=== PATIENT | male | born 2005 | race Caucasian/White ===

== ENCOUNTER 2024-01-05 17:22 | Emergency (ER) | payer OTHER ==
[~2024-01-05] VITALS: Ht 175.3 cm; Wt 61.2 kg
[2024-01-05 18:40] VITALS: BP 120/82; TEMP 98.6; O2SAT 100
[2024-01-05] MEDS ORDERED: KETOROLAC TROMETHAMINE INJ 30 MG/ML VIAL ONE (19:15)
[2024-01-05] MEDS: KETOROLAC TROMETHAMINE INJ 30 MG/ML VIAL IM ONE (19:23)
[2024-01-05] MEDS ORDERED: IBUP-1957 PO (21:53)
[2024-01-05] MEDS ORDERED: ACET-2605 PO (21:53)
[2024-01-05] MEDS ORDERED: CYCL5TAB PO (21:53)
== END 2024-01-05 23:18 | disposition home or self-care (01) ==
LOC: ER 17:25
DX: R07.89 Other chest pain (principal); M25.561 Pain in right knee; R51.9 Headache, unspecified; V43.52XA Car driver injured in collision with other type car in traffic accident, initial encounter; Y93.89 Activity, other specified; Y92.488 Other paved roadways as the place of occurrence of the external cause; Y99.8 Other external cause status
CPT/HCPCS: 99283; 96372; 71100; J1885